=== PATIENT | female | born 1970 | race Caucasian/White ===

== ENCOUNTER 2017-08-06 13:12 | Emergency (ER) | payer BC ==
[2017-08-06 13:25] VITALS: BP 103/61
[2017-08-06] MEDS ORDERED: Albuterol/Ipratropium NEB.SOL* Albuterol 2.5 MG/Ipratropium 0.5 MG 3 ML INH ONE (13:41)
--- NOTE | 2017-08-06 13:43 | UC ---
Respiratory Complaint HPI - HPI Summary HPI Summary: 1 week of increase and worsening cough, had a lobectomy for lung concern but needed no chemo or radiation--has not used her inhaler, has had no fever or sputum - History of Current Complaint Chief Complaint: UCRespiratory Stated Complaint: SOB/COUGH Time Seen by Provider: 08/06/17 13:34 Hx Obtained From: Patient ?: No Onset/Duration: Sudden Onset, Lasting Weeks - 1, Still Present Timing: Constant Severity Initially: Mild Severity Currently: Mild - bothe sides of lower chest with cough Character: Cough: Nonproductive Associated Signs And Symptoms: Positive: Dyspnea, Pleuritic Chest Pain - Allergies/Home Medications Allergies/Adverse Reactions: Allergies Allergy/AdvReac Type Severity Reaction Status Date / Time Amoxicillin Allergy Intermediate Hives Verified 08/06/17 13:25 Codeine Allergy Intermediate Altered Verified 08/06/17 13:25 Mental Status Erythromycin Allergy Intermediate Hives Verified 08/06/17 13:25 Penicillins Allergy Intermediate Hives Verified 08/06/17 13:25 Sulfa Drugs Allergy Intermediate Hives Verified 08/06/17 13:25 PMH/Surg Hx/FS Hx/Imm Hx Previously Healthy: No GI/ History: Gastroesophageal Reflux Cancer History: Lung Cancer - Surgical History Surgical History: Yes Surgery Procedure, Year, and Place: Cardiac ablation for arrhythmia 2007, cholecystectomy 2008, complete hysterectomy 2005, endometriosis laparoscopies, knee surgery x3 for torn cartilage 1995, lymph node removal and biopsy right chest 01/2015, lt upper lobectomy - Family History Known Family History: Positive: None - Social History Occupation: Employed Full-time Lives: With Family Alcohol Use: Rare Substance Use Type: None Smoking Status (MU): Never Smoked Tobacco Have You Smoked in the Last Year: No Review of Systems Constitutional: Negative Skin: Negative Eyes: Negative ENT: Negative Respiratory: Shortness Of Breath, Cough Cardiovascular: Negative Gastrointestinal: Negative Genitourinary: Negative Motor: Negative Neurovascular: Negative Musculoskeletal: Negative Neurological: Negative Psychological: Negative Is Patient Immunocompromised?: No All Other Systems Reviewed And Are Negative: Yes Physical Exam Triage Information Reviewed: Yes Appearance: Well-Appearing, No Pain Distress, Well-Nourished Vital Signs: Initial Vital Signs Temp 97.8 F 08/06/17 13:21 Pulse 67 08/06/17 13:21 Resp 18 08/06/17 13:21 BP 103/61 08/06/17 13:21 Pulse Ox 100 08/06/17 13:21 Vital Signs Reviewed: Yes Eye Exam: Normal Eyes: Positive: Conjunctiva Clear ENT Exam: Normal ENT: Positive: Normal ENT inspection, Hearing grossly normal, TMs normal. Negative: Nasal congestion, Nasal drainage, Trismus, Muffled/hoarse voice Dental Exam: Normal Neck exam: Normal Neck: Positive: Supple, Nontender, No Lymphadenopathy Respiratory Exam: Normal Respiratory: Positive: Chest non-tender, Lungs clear, Normal breath sounds, No respiratory distress, No accessory muscle use Cardiovascular Exam: Normal Cardiovascular: Positive: RRR, No Murmur, Pulses Normal, Brisk Capillary Refill Musculoskeletal Exam: Normal Musculoskeletal: Positive: Strength Intact, ROM Intact, No Edema Neurological Exam: Normal Neurological: Positive: Alert, Muscle Tone Normal Psychological Exam: Normal Skin Exam: Normal UC Diagnostic Evaluation - Laboratory O2 Sat by Pulse Oximetry: 100 - Radiology Xray Interpretation: No Acute Changes Radiology Interpretation Completed By: Radiologist Re-Evaluation - Re-Evaluation First Eval Change: Improved - in aeration after neb---feels better, cough and chest tightness Respiratory Course/Dx - Course Course Of Treatment: prednisone, use flovent daily and albuterol prn for cough chest tightness follow with pcp prn - Differential Dx/Diagnosis Differential Diagnosis/HQI/PQRI: Asthma, Bronchitis Provider Diagnoses: acute exacebation of bronchospasm Discharge - Discharge Plan Condition: Stable Disposition: HOME Prescriptions: Albuterol HFA INHALER* [Ventolin HFA Inhaler*] 2 puff INH Q6H PRN #1 mdi PRN Reason: Cough predniSONE TAB* [Deltasone TAB*] 10 mg PO DAILY #26 tab Patient Education Materials: Bronchospasm (ED), Acute Cough (ED) Referrals: Robby Johnson MD [Primary Care Provider] - 2 Weeks
--- NOTE | 2017-08-06 14:05 | RAD ---
HISTORY: Shortness of breath, cough COMPARISONS: December 10, 2015 VIEWS: 4: Frontal dual-energy and lateral views of the chest. FINDINGS: CARDIOMEDIASTINAL SILHOUETTE: The cardiomediastinal silhouette is normal. ARLETTE: The arlette are normal. PLEURA: The costophrenic angles are sharp. No pleural abnormalities are noted. LUNG PARENCHYMA: There is hyperinflation with flattening of the diaphragm and expansion of the retrosternal airspace. ABDOMEN: The upper abdomen is clear. There is no subphrenic gas. BONES AND SOFT TISSUES: No bone or soft tissue abnormalities are noted. OTHER: None. IMPRESSION: HYPERINFLATION WHICH CAN BE SEEN WITH COPD OR REACTIVE AIRWAY DISEASE. NO ACTIVE CARDIOPULMONARY DISEASE.
== END 2017-08-06 14:35 | disposition home or self-care (01) ==
LOC: UCEAST 13:12
DX: J98.01 Acute bronchospasm (principal); K21.9 Gastro-esophageal reflux disease without esophagitis; Z88.1 Allergy status to other antibiotic agents; Z88.0 Allergy status to penicillin; Z88.2 Allergy status to sulfonamides; Z85.118 Personal history of other malignant neoplasm of bronchus and lung
CPT/HCPCS: 71020; 99212; A9270-GY; G0463

== ENCOUNTER 2017-10-14 23:31 | Emergency (ER) | payer BC ==
[2017-10-14 23:36] VITALS: BP 111/68
[2017-10-14] MEDS ORDERED: Ibuprofen TAB* 600 MG PO ONE (23:44)
--- NOTE | 2017-10-14 23:58 | ED ---
Lower Extremity - HPI Summary HPI Summary: 46F presents with right foot injury today. She dropped a guitar on the top of her foot. She has ROM with pain of her foot. She denies any previous injury to the area. She denies any numbness or tingling. She has ecchmyosis to top of her foot. She is still able to ambulate with pain. She denies any other injury. She did not take anything for pain. pain is 8/10. - History of Current Complaint Chief Complaint: EDExtremityLower Stated Complaint: RIGHT FOOT INJURY Time Seen by Provider: 10/14/17 23:40 Pain Intensity: 7 - Allergies/Home Medications Allergies/Adverse Reactions: Allergies Allergy/AdvReac Type Severity Reaction Status Date / Time Amoxicillin Allergy Intermediate Hives Verified 08/06/17 13:25 Codeine Allergy Intermediate Altered Verified 08/06/17 13:25 Mental Status Erythromycin Allergy Intermediate Hives Verified 08/06/17 13:25 Penicillins Allergy Intermediate Hives Verified 08/06/17 13:25 Sulfa Drugs Allergy Intermediate Hives Verified 08/06/17 13:25 PMH/Surg Hx/FS Hx/Imm Hx Endocrine/Hematology History: Denies: Hx Diabetes, Hx Thyroid Disease Cardiovascular History: Reports: Other Cardiovascular Problems/Disorders - MITROVALVE ABLASION, Denies: Hx Hypertension Respiratory History: Reports: Hx Asthma, Other Respiratory Problems/Disorders - PARTIAL Denies: Hx Chronic Obstructive Pulmonary Disease (COPD) GI History: Denies: Hx Ulcer - Surgical History Surgery Procedure, Year, and Place: Cardiac ablation for arrhythmia 2007, cholecystectomy 2008, complete hysterectomy 2005, endometriosis laparoscopies, knee surgery x3 for torn cartilage 1995, lymph node removal and biopsy right chest 01/2015, lt upper lobectomy - Immunization History Date of Tetanus Vaccine: unk Date of Influenza Vaccine: none Infectious Disease History: No Infectious Disease History: Denies: Hx Clostridium Difficile, Hx Hepatitis, Hx Human Immunodeficiency Virus (HIV), Hx of Known/Suspected MRSA, Hx Shingles, Hx Tuberculosis, Hx Known/ Suspected VRE, Hx Known/Suspected VRSA, History Other Infectious Disease, Traveled Outside the [place] in Last 30 Days - Family History Known Family History: Positive: None - Social History Alcohol Use: Rare Substance Use Type: Reports: None Hx Tobacco Use: No Smoking Status (MU): Never Smoked Tobacco Have You Smoked in the Last Year: No Review of Systems Negative: Fever Negative: Chest Pain Negative: Shortness Of Breath Positive: Myalgia - right foot injury All Other Systems Reviewed And Are Negative: Yes Physical Exam Triage Information Reviewed: Yes Vital Signs On Initial Exam: Initial Vitals Temp Pulse Resp BP Pulse Ox 98.4 F 77 16 111/68 100 10/14/17 23:33 10/14/17 23:33 10/14/17 23:33 10/14/17 23:33 10/14/17 23:33 Vital Signs Reviewed: Yes Appearance: Positive: Well-Appearing Skin: Positive: Warm, Dry, Other - ecchymosis to top of right foot Head/Face: Positive: Normal Head/Face Inspection Eyes: Positive: Normal, Conjunctiva Clear Respiratory/Lung Sounds: Positive: Clear to Auscultation, Breath Sounds Present Cardiovascular: Positive: Normal, RRR Musculoskeletal: Positive: Limited @ - right foot pain, Other - good pulses, capillary refill<2 secs, sensation grossly intact. Neurological: Positive: Normal Psychiatric: Positive: Normal - Tj Coma Scale Coma Scale Total: 15 Diagnostics - Vital Signs Vital Signs Temp Pulse Resp BP Pulse Ox 10/14/17 23:33 98.4 F 77 16 111/68 100 - Laboratory Lab Statement: Any lab studies that have been ordered have been reviewed, and results considered in the medical decision making process. - Radiology ankle Xray Interpretation: No Acute Changes Radiology Interpretation Completed By: ED Physician Lower Extremity Course/Dx - Course Course Of Treatment: 46F presents with right foot injury today. She dropped a guitar on the top of her foot. She has ROM with pain of her foot. She denies any previous injury to the area. She denies any numbness or tingling. She has ecchmyosis to top of her foot. She is still able to ambulate with pain. She denies any other injury. She did not take anything for pain. pain is 8/10. on exam has ecchmyosis to top of right foot, sensation grossly intact. good pulses , I read xray as normal with dr presley informed that will call if read differently. will give post op shoe and treat with RICE. patient declined crutches. patient understand and agrees with plan. - Diagnoses Differential Diagnosis/HQI/PQRI: Positive: Contusion, Fracture (Closed), Sprain Provider Diagnoses: Right foot injury Discharge - Discharge Plan Condition: Good Disposition: HOME Patient Education Materials: Foot Contusion (ED) Referrals: Robby Johnson MD [Primary Care Provider] - Additional Instructions: Take Tylenol or ibuprofen every 6 hours as needed for pain Use shoe for support Apply ice, rest, elevate Follow up with primary care physician within 5 days Return to ED if develop any new or worsening symptoms
--- NOTE | 2017-10-15 07:48 | RAD ---
INDICATION: Right foot injury COMPARISON: None TECHNIQUE: AP, lateral, and oblique views were obtained. FINDINGS: There is no acute fracture. The joint spaces are maintained The soft tissue swelling over the dorsum of the midfoot. IMPRESSION: SOFT TISSUE SWELLING. NO ACUTE FRACTURE.
== END 2017-10-15 00:30 | disposition home or self-care (01) ==
LOC: ED 23:31
DX: S99.921A Unspecified injury of right foot, initial encounter (principal); W22.8XXA Striking against or struck by other objects, initial encounter; Y93.9 Activity, unspecified; Y92.9 Unspecified place or not applicable
CPT/HCPCS: 99282; A9270-GY

== ENCOUNTER 2019-01-05 11:47 | Observation (INO) | payer BC ==
--- NOTE | 2019-01-05 16:03 | ED ---
Abdominal Pain/Female - HPI Summary HPI Summary: Pt. is a 48 y.o female who presents to the ER for RLQ abdominal pain. Pt. states she was in [facility] until 12/26. Pt. states she then developed abd. pain and vomiting. She was seen at 01/01/19 and started on cipro and antiemetic. Pt. states vomiting improved but abd. pain has worsening and is now localized to her RLQ. Pt. denies fever, chills, CP, SOB, diarrhea, vomiting. Remote hx of lung ca, total hysterectomy. Symptoms are moderate in severity. No current modifying factors. - History of Current Complaint Chief Complaint: Bri Stated Complaint: "i THINK i HAVE APPENDACITIS" PER PT Time Seen by Provider: 01/05/19 16:01 Hx Obtained From: Patient Pain Intensity: 7 Allergies/Adverse Reactions: Allergies Allergy/AdvReac Type Severity Reaction Status Date / Time amoxicillin Allergy Hives Verified 01/01/19 15:02 codeine Allergy Altered Verified 01/01/19 15:02 Mental Status erythromycin base Allergy Hives Verified 01/01/19 15:02 Penicillins Allergy Hives Verified 01/01/19 15:02 Sulfa (Sulfonamide Allergy Hives Verified 01/01/19 15:02 Antibiotics) PMH/Surg Hx/FS Hx/Imm Hx Previously Healthy: Yes Endocrine/Hematology History: Denies: Hx Diabetes, Hx Thyroid Disease Cardiovascular History: Reports: Other Cardiovascular Problems/Disorders - MITROVALVE ABLASION, Denies: Hx Hypertension Respiratory History: Reports: Hx Asthma, Other Respiratory Problems/Disorders - PARTIAL Denies: Hx Chronic Obstructive Pulmonary Disease (COPD) GI History: Denies: Hx Ulcer - Surgical History Surgery Procedure, Year, and Place: Cardiac ablation for arrhythmia 2007, cholecystectomy 2008, complete hysterectomy 2005, endometriosis laparoscopies, knee surgery x3 for torn cartilage 1995, lymph node removal and biopsy right chest 01/2015, lt upper lobectomy - Immunization History Date of Tetanus Vaccine: unk Date of Influenza Vaccine: none Infectious Disease History: No Infectious Disease History: Reports: Traveled Outside the [place] in Last 30 Days - [facility], last tuesday returned Denies: Hx Clostridium Difficile, Hx Hepatitis, Hx Human Immunodeficiency Virus (HIV), Hx of Known/Suspected MRSA, Hx Shingles, Hx Tuberculosis, Hx Known/ Suspected VRE, Hx Known/Suspected VRSA, History Other Infectious Disease - Family History Known Family History: Positive: None - Social History Occupation: Employed Full-time Lives: With Family Alcohol Use: None Substance Use Type: Reports: None Hx Tobacco Use: No Smoking Status (MU): Never Smoked Tobacco Have You Smoked in the Last Year: No Review of Systems Constitutional: Negative Negative: Fever, Chills ENT: Negative Cardiovascular: Negative Respiratory: Negative Positive: Abdominal Pain, Nausea. Negative: Vomiting, Diarrhea Genitourinary: Negative Negative: dysuria Musculoskeletal: Negative Skin: Negative Neurological: Negative All Other Systems Reviewed And Are Negative: Yes Physical Exam Triage Information Reviewed: Yes Vital Signs On Initial Exam: Initial Vitals Temp Pulse Resp BP Pulse Ox 97.6 F 76 16 112/75 100 01/05/19 12:03 01/05/19 12:03 01/05/19 12:03 01/05/19 12:03 01/05/19 12:03 Vital Signs Reviewed: Yes Appearance: Positive: Well-Appearing - Pt. lying in bed in NAD. Pleasant. Skin: Positive: Warm, Dry Head/Face: Positive: Normal Head/Face Inspection Eyes: Positive: Normal, EOMI Neck: Positive: Supple Respiratory/Lung Sounds: Positive: Clear to Auscultation, Breath Sounds Present Cardiovascular: Positive: Normal, RRR Abdomen Description: Positive: Other: - Abd. is soft with marked tenderness to RLQ with guarding. No CVA tenderness bilaterally. Musculoskeletal: Positive: Normal, Strength/ROM Intact Neurological: Positive: Normal, CN Intact II-III Psychiatric: Positive: Affect/Mood Appropriate Diagnostics - Vital Signs Vital Signs Temp Pulse Resp BP Pulse Ox 01/05/19 13:50 98.6 F 73 16 105/59 100 01/05/19 12:03 97.6 F 76 16 112/75 100 - Laboratory Result Diagrams: 01/05/19 16:05 01/05/19 16:05 Lab Statement: Any lab studies that have been ordered have been reviewed, and results considered in the medical decision making process. Abdominal Pain Fem Course/Dx - Course Course Of Treatment: Pt. presenting for marked RLQ tenderness. She is afebrile with stable VS. Pt. did have a noncontrast CT done at last week that was unremarkable. Given worsening pain and marked tenderness on exam, will obtain CT scan with contrast to evaluate for appendicitis. Pt declines pain medication. Pt. will be signed out to Jacquie Pizano PA-C for CT results and appropriate disposition. - Diagnoses Differential Diagnosis: Positive: Appendicitis, Bowel Obstruction, Constipation , Diverticulitis, Renal Colic, Urinary Tract Infection Provider Diagnoses: Abdominal pain Discharge - Sign-Out/Discharge Documenting (check all that apply): Sign-Out Patient Signing out patient TO: Lay Pizano - Discharge Plan Referrals: Robby Johnson MD [Primary Care Provider] -
[2019-01-05] MEDS ORDERED: NS 0.9% 1000 ML** 1,000 ML IV ONE (16:10)
[2019-01-05 16:13] LABS: ABS Basophils 0 10^3/ul (0-0.2); ABS Eosinophils 0.1 10^3/ul (0-0.6); ABS Lymphocytes 1.3 10^3/ul (1.0-4.8); ABS Monocytes 0.5 10^3/ul (0-0.8); ABS Neutrophils 4.8 10^3/ul (1.5-7.7); ABS Nucleated RBC 0 10^3/ul; Eosinophil % 2.2 %; Hematocrit 42 % (35-47); Hemoglobin 13.9 g/dl (12.0-16.0); Lymphocyte % 18.5 %; Mean Corpuscular HGB Conc 33 g/dl (31-36); Mean Corpuscular Hemoglobin 29 pg (27-31); Mean Corpuscular Volume 88 fL (80-97); Mean Platelet Volume 8.3 fL (7.4-10.4); Nucleated Red Blood Cells % 0; Platelet Count 209 10^3/ul (150-450); Red Blood Count 4.73 10^6/ul (4.00-5.40); Red Cell Distribution Width 13 % (10.5-15); White Blood Count 6.8 10^3/ul (3.5-10.8)
[2019-01-05 16:31] LABS: Albumin 4.5 g/dL (3.2-5.2); Albumin/Globulin Ratio 1.4 (1-3); BUN/Creatinine Ratio 11.3 (8-20); C Reactive Protein 8.26 mg/L (<8.01); Calcium 9.3 mg/dL (8.6-10.3); EGFR African American 74.2 (>60); EGFR Non-African American 61.3 (>60); Globulin 3.3 g/dL (2-4); Potassium 3.6 mmol/L (3.5-5.0); Total Bilirubin 0.6 mg/dL (0.2-1.0); Total Protein 7.8 g/dL (6.4-8.9)
[2019-01-05 16:37] LABS: HCG Pregnancy 1.59 mIU/mL
[2019-01-05 17:15] LABS: Urine Appearance Clear; Urine Bilirubin Negative (Negative); Urine Blood Negative (Negative); Urine Color Yellow; Urine Glucose Negative (Negative); Urine Ketones Negative (Negative); Urine Nitrite Negative (Negative); Urine Protein Negative (Negative); Urine Specific Gravity 1.014 (1.010-1.030); Urine Urobilinogen Negative (Negative)
[2019-01-05] MEDS ORDERED: Iohexol 300* (CONTRAST) 10 ML SDV IV ONE (17:33)
--- NOTE | 2019-01-05 18:32 | ED ---
Progress - Progress Note Progress Note: patient signed out by derian pending CT. CT shows: IMPRESSION: Acute uncomplicated appendicitis. Re-Evaluation - Re-Evaluation First Eval Re-Evaluation Time: 18:32 Comment: pain still in RLQ Course/Dx - Course Course Of Treatment: Pt. presenting for marked RLQ tenderness. She is afebrile with stable VS. Pt. did have a noncontrast CT done at last week that was unremarkable. Given worsening pain and marked tenderness on exam, will obtain CT scan with contrast to evaluate for appendicitis. Pt declines pain medication. CT shows appendicitis. discussed case with dr mcclain who will take patient to OR. - Diagnoses Provider Diagnoses: Appendicitis Discharge - Sign-Out/Discharge Documenting (check all that apply): Patient Departure, Receiving Sign-Out Receiving patient FROM: Derian De Jesus - Discharge Plan Condition: Stable Disposition: ADMITTED TO [facility] Referrals: Robby Johnson MD [Primary Care Provider] - - Billing Disposition and Condition Condition: STABLE Disposition: Admitted to [facility]
[2019-01-05] MEDS ORDERED: Buffered Lidocaine 1% SYRIN* 1 ML/SYRINGE INTRADERM ONE (20:41)
[2019-01-05] MEDS ORDERED: Acetaminophen TAB* 325 MG PO PRN (20:42)
[2019-01-05] MEDS ORDERED: PROCHLORPERAZINE INJ 5 MG/ML 2 ML VIAL IV PRN (20:42)
[2019-01-05] MEDS ORDERED: DiMENhydriNATE IV* 50 MG/ML VIAL IV PUSH PRN (20:42)
[2019-01-05] MEDS ORDERED: diPHENhydraMINE IV* 50 MG/ML 1 ml VIAL (BENADRYL) IV PRN (20:42)
[2019-01-05] MEDS ORDERED: Naloxone* 0.4 MG/ML 1 ML VIAL IV PRN (20:42)
[2019-01-05] MEDS ORDERED: Clindamycin 900 MG/D5W BAG(*) 900 MG/50 ML BAG IVPB ONE (20:54)
[2019-01-05] MEDS ORDERED: Famotidine IV* 10 MG/ML 2 ML (20 mg) ONE (20:56)
[2019-01-05] MEDS ORDERED: Lactated Ringers 1000 ML Bag* 1,000 ML IV SCH ×2 (21:00→23:00)
[2019-01-05] MEDS ORDERED: fentaNYL* 50 MCG/ML 2 ML VIAL (100 MCG VIAL) ONE ×2 (21:03→22:35)
[2019-01-05] MEDS ORDERED: Succinylcholine* 20 MG/ML 10 ML VIAL ONE (21:03)
[2019-01-05] MEDS ORDERED: Midazolam* 1 MG/ML 2 ML VIAL (2 MG) ONE (21:03)
[2019-01-05] MEDS ORDERED: Cisatracurium* 2 MG/ML MDV 5 ML ONE (21:03)
[2019-01-05] MEDS ORDERED: Bupivacaine 0.25% W/EPI* 10 ML SDV ONE (21:08)
[2019-01-05] MEDS ORDERED: Propofol* 10 MG/ML 20 ML BTL ONE (21:29)
[2019-01-05] MEDS ORDERED: Dexamethasone IV* 4 MG/ML 1 ML (4 MG) ONE (21:29)
[2019-01-05] MEDS ORDERED: Ondansetron INJ* 2 MG/ML VIAL ONE (21:29)
[2019-01-05] MEDS ORDERED: Ketorolac INJ* 30 MG/ML 1 ML VIAL ONE (21:29)
[2019-01-05] MEDS ORDERED: Lidocaine 2% PF * 5 ML VIAL ONE (21:32)
[2019-01-05] MEDS ORDERED: Ondansetron INJ* 2 MG/ML VIAL IV PRN (22:19)
--- NOTE | 2019-01-05 22:22 | BRIEFOPN ---
Brief Operative Note - Surgery Procedures: Procedures Pre-OP Diagnoses: acute appendicitis Post-op Diagnosis: same Procedure: Laparoscopic appendectomy Surgeon: Chao Asst: none Anethesia: YAOA EBL: minimal IVF: crystalloid Specimen: appendix Drains: none
--- NOTE | 2019-01-05 22:33 | HP ---
CC: [facility]; Dr. Robby Johnson HISTORY AND PHYSICAL: DATE OF ADMISSION: 01/05/19 PRIMARY CARE PHYSICIAN: Dr. Robby Johnson. HISTORY OF PRESENT ILLNESS: I was contacted by the emergency room with regard to Ms. Rutledge who presented with abdominal pain and was diagnosed in the emergency room with lab and CT with likely anant endicitis. On evaluation, the patient states that she has been suffering with 4 days of abdominal pain that is n ow mostly in the right side accompanying with nausea, but no vomiting. She had presented to [facility] on Tuesday with similar complaints and underwent a similar workup that was negative, but sent home on Cipro and Flagyl for a supposed infection after a recent travel to [place]. The patien t showed no improvement, stayed away from food and ultimately re-presented to the emergency room toda y with similar complaints. The patient denies any fevers or chills. No constipation or diarrhea. No previous similar symptoms. She does have anorexia. PAST MEDICAL HISTORY: Endometriosis, lung CA, mitral valve issues, cardiac arrhythmia. PAST SURGICAL HISTORY: Cholecystectomy, hysterectomy done vaginally, 2 laparoscopies for endometrios is, right upper lobectomy for lung CA with lymph node removal, knee surgery x3. MEDICATIONS: Medication list is reviewed and includes: 1. Cipro and Flagyl as described above. 2. Zofran. 3. She is on a hormone patch. ALLERGIES: List as reviewed and includes PENICILLIN, AMOXICILLIN, CODEINE, SULFA and ERYTHROMYCIN BA SE. FAMILY HISTORY: Noncontributory. No history of ulcerative colitis or Crohn's disease. SOCIAL HISTORY: She is a nonsmoker, lives with his family, works at [employer]. REVIEW OF SYSTEMS: No fevers or chills. No significant weight loss or weight gain. No bleeding or clotting disorders. Pulmonary issues secondary to a lung surgery, but denies shortness of breath, roblero s fair exercise tolerance. No irritable bowel symptoms. Endometriosis as described. No vaginal dis charge. She does not have menses secondary to hysterectomy, stating that she had both ovaries remove d as well. No endocrine disorders, no psychiatric illnesses. No dysuria. PHYSICAL EXAMINATION GENERAL: Alert and oriented x3, in no apparent distress. VITAL SIGNS: She is afebrile. Vital signs are stable. HEENT: Irregularity to the right frontal region, but with good skin tone. No evidence of dehydratio n with moist mucous membranes. NECK: No lymphadenopathy. LUNGS: Clear. ABDOMEN: Soft, nondistended, tender at McBurney's point, without rebound or guarding, well healed gregory rgical incision without hernia. No CVA tenderness. RECTAL: Exam not performed. EXTREMITIES: Within normal limits with no pitting edema. DIAGNOSTIC STUDIES/LAB DATA: Labs were mostly unremarkable. Normal white blood cell count, mildly elevated CRP. Urinalysis within normal limits too. The patient underwent a CT scan with oral contrast and IV contrast. These images were reviewed and c ontrast was seen in the cecum, but there is a dilated noncontrast filled structure in the retroperito neum. It does show thickening in the wall with some air in it. This was compared to a CT scan from 4 days ago without similar findings in that retroperitoneum. IMPRESSION: Persistent abdominal pain throughout the week on antibiotics and a CAT scan suggestive o f a change in the appendix on CT with persistent right lower quadrant pain at McBurney's, but certain ly not toxic, who I think may be suffering with an appendicitis that is now only becoming more clinic al, who I believe would benefit from appendectomy. I outlined the details of the procedure for lapar oscopic appendectomy. I went over the possible alternatives of watchful waiting and antibiotics. Th e patient wished to proceed. She understands the complications as described, which included, but not limited to bleeding infection, abscess formation, injury to adjacent organ, need for additional proc edures, need for open procedures and hernia formation. The patient will be given a dose of clindamyc in. She has emptied her bladder. I will take her promptly to the operating room for laparoscopic ap pendectomy. She will be admitted overnight due to the time. [id number]/[facility] #: [id number]
[2019-01-05] MEDS ORDERED: PROCHLORPERAZINE INJ 5 MG/ML 2 ML VIAL ONE (22:37)
[2019-01-05] MEDS: fentaNYL* 50 MCG/ML 2 ML VIAL (100 MCG VIAL) IV PRN ×4 (22:51→23:56)
--- NOTE | 2019-01-05 23:43 | OP ---
CC: [facility]; Dr. Robby Johnson OPERATIVE REPORT: DATE OF OPERATION: 01/05/19 DATE OF : 70 SURGEON: Dr. Kenroy Guidry. BEAD CUTTER: None. ANESTHESIOLOGIST: Dr. Crawford. ANESTHESIA: General anesthesia. PRE-OP DIAGNOSIS: Acute appendicitis. POST-OP DIAGNOSIS: Acute appendicitis. OPERATIVE PROCEDURE: Laparoscopic appendectomy. ESTIMATED BLOOD LOSS: Minimal. FLUIDS: Minimal crystalloid fluid given. SPECIMENS: Appendix, nonperforated. DESCRIPTION OF PROCEDURE: Ms. Rutledge was brought to the operating room, placed on the operating room table in the supine position. Preoperative antibiotics were given. Sequential devices were solitario pamela on bilateral lower extremities. General anesthesia was induced. The patient's abdomen was prepp ed and draped in the standard surgical fashion and a time-out was performed. Folds of the umbilicus were elevated anteriorly and a Veress needle inserted into the abdominal cavit y, which was then allowed insufflate to a pressure of 15 mmHg. The patient tolerated the insufflation well. A umbilical incision was made and a 12 mm trocar was inserted with Optiview. Laparoscope was inserted through this after we removed the obturator and I reviewed the abdomen. Verses needle was removed. There appeared to be no injury from our access. Two additional 5 mm ports were placed in t he suprapubic area in the left lower quadrant. Table was repositioned, the cecum was identified and the appendix was identified, the tip of which wa s adhered to the distal small bowel. This was sharply lysed off of this. The appendix appeared mild ly indurated at the tip without gangrenous changes. We sharply dissected around the mesoappendix and took the artery with a LigaSure device. We then were able to isolate the base of the appendix and s taple it with a 45 mm mccord BRIANNA stapling device. The appendix was placed in an endoscopic retrieval ba g. Review of the abdomen showed no free fluid. Next, we ran the small bowel retrograde from the terminal ileum proximally approximately 3 feet and d id not find any lesions. The patient was placed back in neutral position. The appendix was removed t hrough the umbilical port site with the Endobag and the port was closed with a 0 Vicryl stitch with a n Endo Close device in a simple fashion. Abdomen was allowed to collapse. Trocar was removed under direct vision and all 3 skin incisions were reapproximated with 4-0 Monocryl subcuticular sutures fol lowed by Steri-Strips and sterile dressing. The patient tolerated the procedure well and was transfe rred to PACU. [id number]/[facility] #: [id number]
[2019-01-05] MEDS ORDERED: oxyCODONE/Acetamin 5/325 MG* TAB ONE (23:54)
[2019-01-05] MEDS: oxyCODONE/Acetamin 5/325 MG* TAB PO PRN (23:54)
[2019-01-06] MEDS: oxyCODONE/Acetamin 5/325 MG* TAB PO PRN (08:02)
[2019-01-06 08:34] VITALS: BP 110/56
== END 2019-01-06 10:15 | disposition home or self-care (01) ==
LOC: ED 11:47 → INTOOBSV 22:19 → SSU 22:19
PROVIDERS: ADMIT Surgery; ATTEND Surgery
DX: K37 Unspecified appendicitis (principal); R10.31 Right lower quadrant pain; Z88.0 Allergy status to penicillin; Z88.2 Allergy status to sulfonamides; Z85.118 Personal history of other malignant neoplasm of bronchus and lung; Z87.42 Personal history of other diseases of the female genital tract; Z86.79 Personal history of other diseases of the circulatory system
CPT/HCPCS: 36415; 74177; 80053; 81003; 83690; 84702; 85025; 86140; 88304; 96374; 96375; 99283; A9270-GY; G0378; J0330; J0780; J1100; J1885; J2250; J2405; J2704; J3010; Q9967

== ENCOUNTER 2019-01-24 16:55 | Emergency (ER) | payer BC ==
--- OUTSIDE RECORDS SUMMARY | 2019-01-24 17:00 | XMS REPORT | Continuity of Care Document ---
:1970 External Reference #:[id number] Author Name AnabelleYessica Care Team Providers Name Role Phone Robby Johnson MD Primary Care Physician Unavailable Payers Date Identification Numbers Payment Provider Subscriber Policy Number: [id number] [employer] Dragan Rutledge Group Number: [id number] [address] [address] PayID: [id number] ALLEN Patel [address] Advance Directives Description No Information Available Problems Description No Information Family History Description No Information Available Social History Type Date Description Comments Sex Unknown Marital Status Lives With Spouse Occupation Currently Working ETOH Use Denies alcohol use Tobacco Use Start: Unknown Patient has never smoked Recreational Drug Use Denies Drug Use Smoking Status Reviewed: 01/11/19 Patient has never smoked Exercise Type/Frequency Exercises sporadically Allergies, Adverse Reactions, Alerts Date Description Reaction Status Severity Comments 01/08/2019 Penicillin Active 01/08/2019 Amoxicillin Active 01/08/2019 Codeine Active 01/08/2019 Sulfa Antibiotics Active 01/08/2019 Erythromycin Active Medications Medication Date Status Form Strength Qnty SIG Indications Ordering Provider Climara Active Patches 0.05mg/24H Unknown Weekly R No Active 01/11/2019 Hx Unknown Medications - 01/11/2019 Cipro Hx Tablets 500mg 1 by Unknown - Unknown mouth twice a day Flagyl Hx Tablets 500mg one Unknown - Unknown twice a day Zofran Hx Tablets 4mg 1 every Unknown - Unknown 12 hours as needed Immunizations Description No Information Available Vital Signs Date Vital Result Comment 01/11/2019 1:22pm Height 71 inches 5'11" Weight 195.00 lb Heart Rate 72 /min BP Systolic 117 mmHg BP Diastolic 70 mmHg Respiratory Rate 16 /min Body Temperature 97.7 F BMI (Body Mass Index) 27.2 kg/m2 Results Test Date Facility Test Result H/L Range Note Laboratory test 01/05/2019 Surgical SEE RESULT [address] [address] [phone] 1 SEE RESULT BELOW Name: NARCISASUSANDELORIS LOPEZ : [address]: Kenroy Guirdy MD Acct: [id number] Unit: [id number] AGE: 48 Location: [facility] 333-01 Re01/05/19 Dis: 01/06/19 SEX: F Status: DIS Zackary SPEC: [id number] COSTA: 01/05/19- SUBM DR: Kenroy Guidry MD REQ: [id number] RECD: 01/06/197 STATUS: SOUT _ ORDERED: LEVEL 3 FINAL DIAGNOSIS Vermiform appendix, appendectomy: -- Early acute appendicitis. PRE-OPERATIVE DIAGNOSIS Appendicitis GROSS DESCRIPTION The specimen is received in formalin labeled, Appendix, and consists of a 4.8 cm appendix with abundant attached mesoappendix. The external diameter ranges from 0.6 cm in the distal tip to 1.0 cm in the mid to proximal specimen. The serosa is smooth to shaggy mccord-white with a few fibromembranous adhesions and scant focal cauterization. The lumen measures up to 0.3 cm. The mucosa is glistening mccord-white and the wall thickness averages 0.1 cm. Rouge Sifter sections, one cassette. Signed by and Reported on: Anthony Calhoun MD 10/18 5104 END OF REPORT DEPARTMENT OF PATHOLOGY, [address] [place] [address] Anthony Calhoun M.D. Director [facility] # [id number] Procedures Description No Information Available Encounters Description No Information Available Plan of Treatment No Information Available
[2019-01-24 17:36] VITALS: BP 109/57
--- NOTE | 2019-01-24 18:58 | UC ---
Throat Pain/Nasal Morro HPI - HPI Summary HPI Summary: 48-year-old female presents with 5 day history of sore throat and left ear pain. Associated with some mild nasal congestion with postnasal drip. Denies fever, chills, ear drainage, tinnitus, hearing loss, vertigo, dysphagia, cough, chest pain, shortness of breath. - History of Current Complaint Chief Complaint: UCRespiratory Stated Complaint: SORE THROAT Time Seen by Provider: 01/24/19 18:37 Hx Obtained From: Patient Pain Intensity: 4 - Allergies/Home Medications Allergies/Adverse Reactions: Allergies Allergy/AdvReac Type Severity Reaction Status Date / Time amoxicillin Allergy Hives Verified 01/24/19 17:31 codeine Allergy Altered Verified 01/24/19 17:31 Mental Status erythromycin base Allergy Hives Verified 01/24/19 17:31 Penicillins Allergy Hives Verified 01/24/19 17:31 Sulfa (Sulfonamide Allergy Hives Verified 01/24/19 17:31 Antibiotics) PMH/Surg Hx/FS Hx/Imm Hx Previously Healthy: Yes - Denies significant PMH - Surgical History Surgical History: Yes Surgery Procedure, Year, and Place: Appy 01/05/2019. Cardiac ablation for arrhythmia 2007, cholecystectomy 2008, complete hysterectomy 2005, endometriosis laparoscopies, knee surgery x3 for torn cartilage 1995, lymph node removal and biopsy right chest 01/2015, lt upper lobectomy - Family History Known Family History: Positive: Non-Contributory - Social History Occupation: Employed Full-time Lives: With Family Alcohol Use: None Substance Use Type: None Smoking Status (MU): Never Smoked Tobacco Have You Smoked in the Last Year: No - Immunization History Most Recent Influenza Vaccination: none Most Recent Pneumonia Vaccination: none Review of Systems All Other Systems Reviewed And Are Negative: Yes Constitutional: Negative: Fever, Chills Skin: Negative: Rash Eyes: Negative: Drainage, Eye Redness ENT: Positive: Sore Throat, Ear Ache, Sinus Congestion, Other - Postnasal drip. Negative: Nasal Discharge, Sinus Pain/Tenderness Respiratory: Negative: Shortness Of Breath, Cough Cardiovascular: Negative: Palpitations, Chest Pain Gastrointestinal: Negative: Abdominal Pain, Vomiting, Diarrhea, Nausea Genitourinary: Positive: Negative Musculoskeletal: Positive: Negative Neurological: Positive: Negative Is Patient Immunocompromised?: No Physical Exam - Summary Physical Exam Summary: GENERAL APPEARANCE: Well developed, well nourished, alert and cooperative, and appears to be in no acute distress. EYES: Conjunctiva clear. No drainage. Vision is grossly intact. EARS: External auditory canals clear, right TM opaque with good cone of light, left TM dull without erythema, hearing grossly intact. NOSE: Mild nasal congestion. No nasal discharge. THROAT: Mild pharyngeal erythema. No tonsilar inflammation, swelling, exudate, or lesions. Uvula midline. Oral cavity normal. Teeth and gingiva in good general condition. NECK: Neck supple, non-tender without lymphadenopathy. CARDIAC: Normal S1 and S2. No S3, S4 or murmurs. Rhythm is regular. There is no peripheral edema, cyanosis or pallor. Extremities are warm and well perfused. Capillary refill is less than 2 seconds. Peripheral pulses intact. LUNGS: Clear to auscultation without rales, rhonchi, wheezing or diminished breath sounds. ABDOMEN: Positive bowel sounds. Soft, nondistended, nontender. No guarding or rebound. No masses or hepatosplenomegally. MUSKULOSKELETAL: ROM intact to all extremities. No joint erythema or tenderness. Normal muscular development. Normal gait. SKIN: Skin normal color, texture and turgor with no lesions or eruptions. Triage Information Reviewed: Yes Vital Signs: Initial Vital Signs Temp 98.6 F 01/24/19 17:32 Pulse 75 01/24/19 17:32 Resp 18 01/24/19 17:32 BP 109/57 01/24/19 17:32 Pulse Ox 100 01/24/19 17:32 Vital Signs Reviewed: Yes Throat Pain/Nasal Course/Dx - Course Course Of Treatment: 48-year-old female presents with 5 day history of sore throat and left ear pain. Associated with some mild nasal congestion with postnasal drip. Denies fever, chills, ear drainage, tinnitus, hearing loss, vertigo, dysphagia, cough, chest pain, shortness of breath. Afebrile. Vital signs stable. Exam remarkable for mild nasal congestion, pharyngeal erythema with postnasal drip, no tonsillar swelling or exudate, no cervical lymphadenopathy, and left TM dull without erythema. Recommending symptomatic treatment for viral URI with left serous otitis including fluticasone nasal spray, lexb-ybw-tdswnmt decongestant, jpxp-qoq-sxpjozk analgesics, and saltwater gargles. She is to follow-up with her primary care provider in 5 days if symptoms do not improve. Anticipatory guidance and warning symptoms reviewed with the patient. Verbalizes understanding and agrees with plan of care. - Differential Dx/Diagnosis Differential Diagnosis/HQI/PQRI: Influenza, Pharyngitis, Sinusitis, Tonsillitis , URI Provider Diagnosis: Post-nasal drip, Serous otitis media Discharge - Sign-Out/Discharge Documenting (check all that apply): Patient Departure All imaging exams completed and their final reports reviewed: No Studies - Discharge Plan Condition: Stable Disposition: HOME Patient Education Materials: Pharyngitis (ED), Serous Otitis Media (ED), Postnasal Drip (DC) Referrals: Robby Johnson MD [Primary Care Provider] - 5 Days (If no improvement in symptoms.) Additional Instructions: Your rapid strep test in the clinic today was negative. Your symptoms are likely from a viral infection. Viral infections do not respond to antibiotics and are limited to the treatment of symptoms. Viral infections typically run their course in 7-10 days. Drink plenty of fluids. Use your fluticasone (Flonase) nasal spray 2 sprays each nostril once daily. You can try using an over the counter decongestant such as Sudafed according to directions for any congestion. Use salt water gargles several times a day. Take over the counter acetaminophen (Tylenol) or ibuprofen (Advil, Motrin) according to directions as needed for pain or fever. You may also use Chloraseptic spray or Cepacol lonzenges according to directions which contain a numbing medication and can provide some temporary relief from your sore throat. Return here or follow up with your primary care provider in 5 days if symptoms persist. Seek immediate medical attention in the emergency room if you have fever greater than 100.5 F despite taking acetaminophen or ibuprofen, are unable to swallow or develop drooling, are unable to open your mouth fully, are unable to eat or drink, have pain that is not relieved with over the counter pain medication, have any difficulty breathing, or any worsening of symptoms. - Billing Disposition and Condition Condition: STABLE Disposition: Home
== END 2019-01-24 19:20 | disposition home or self-care (01) ==
LOC: UCEAST 16:55
DX: R09.82 Postnasal drip (principal); H65.92 Unspecified nonsuppurative otitis media, left ear; Z86.79 Personal history of other diseases of the circulatory system
CPT/HCPCS: 87651; 99211; G0463

== ENCOUNTER 2019-02-14 10:46 | Emergency (ER) | payer BC ==
[2019-02-14 11:00] VITALS: BP 101/64
--- NOTE | 2019-02-14 11:38 | UC ---
Throat Pain/Nasal Morro HPI - HPI Summary HPI Summary: 48-year-old female with history of asthma and lung cancer status post left upper lobectomy presents with one-week history of progressively worsening nasal congestion, chest congestion, and productive cough. Associated with feeling "hot and cold". States sputum was initially clear but his become a thick yellow color over the past 2 days. She has been using her albuterol inhaler twice a day however yesterday she ran out and does not have any refills. Denies fever, ear pain, sore throat, chest pain, abdominal pain, nausea, vomiting, or diarrhea. - History of Current Complaint Chief Complaint: UCGeneralIllness Stated Complaint: COUGH CHEST CONGESTION Time Seen by Provider: 02/14/19 11:23 Hx Obtained From: Patient Hx Last Menstrual Period: hyster Pain Intensity: 2 - Allergies/Home Medications Allergies/Adverse Reactions: Allergies Allergy/AdvReac Type Severity Reaction Status Date / Time amoxicillin Allergy Hives Verified 02/14/19 11:00 codeine Allergy Altered Verified 02/14/19 11:00 Mental Status erythromycin base Allergy Hives Verified 02/14/19 11:00 Penicillins Allergy Hives Verified 02/14/19 11:00 Sulfa (Sulfonamide Allergy Hives Verified 02/14/19 11:00 Antibiotics) PMH/Surg Hx/FS Hx/Imm Hx Respiratory History: Asthma GI/ History: Gastroesophageal Reflux Cancer History: Lung Cancer - Surgical History Surgical History: Yes Surgery Procedure, Year, and Place: Appy 01/05/2019. Cardiac ablation for arrhythmia 2007, cholecystectomy 2008, complete hysterectomy 2005, endometriosis laparoscopies, knee surgery x3 for torn cartilage 1995, lymph node removal and biopsy right chest 01/2015, lt upper lobectomy - Family History Known Family History: Positive: Non-Contributory - Social History Occupation: Employed Full-time Lives: With Family Alcohol Use: None Substance Use Type: None Smoking Status (MU): Never Smoked Tobacco Have You Smoked in the Last Year: No - Immunization History Most Recent Influenza Vaccination: none Most Recent Pneumonia Vaccination: none Review of Systems All Other Systems Reviewed And Are Negative: Yes Constitutional: Positive: Chills, Fatigue. Negative: Fever Skin: Negative: Rash Eyes: Negative: Drainage, Eye Redness ENT: Positive: Nasal Discharge, Sinus Congestion. Negative: Sore Throat, Ear Ache, Sinus Pain/Tenderness Respiratory: Positive: Shortness Of Breath, Cough, Other - Wheezing Cardiovascular: Negative: Palpitations, Chest Pain Gastrointestinal: Negative: Abdominal Pain, Vomiting, Diarrhea, Nausea Genitourinary: Positive: Negative Musculoskeletal: Positive: Negative Neurological: Positive: Negative Is Patient Immunocompromised?: No Physical Exam - Summary Physical Exam Summary: GENERAL APPEARANCE: Well developed, well nourished, alert and cooperative, and appears to be in no acute distress. EYES: Conjunctiva clear. No drainage. EARS: External auditory canals and tympanic membranes clear, hearing grossly intact. NOSE: Moderate nasal congestion. No nasal discharge noted. THROAT: Pharyngeal cobblestoning. No tonsilar inflammation, swelling, exudate, or lesions. Uvula midline. Oral cavity normal. Teeth and gingiva in good general condition. NECK: Neck supple, non-tender without lymphadenopathy. CARDIAC: Normal S1 and S2. No S3, S4 or murmurs. Rhythm is regular. There is no peripheral edema, cyanosis or pallor. Extremities are warm and well perfused. Capillary refill is less than 2 seconds. Peripheral pulses intact. LUNGS: Clear to auscultation without rales, rhonchi, wheezing or diminished breath sounds. Loose, non-productive cough. ABDOMEN: Positive bowel sounds. Soft, nondistended, nontender. No guarding or rebound. No masses or hepatosplenomegally. MUSKULOSKELETAL: ROM intact to all extremities. No joint erythema or tenderness. Normal muscular development. Normal gait. SKIN: Skin normal color, texture and turgor with no lesions or eruptions. Triage Information Reviewed: Yes Vital Signs: Initial Vital Signs Temp 98 F 02/14/19 10:56 Pulse 80 02/14/19 10:56 Resp 18 02/14/19 10:56 BP 101/64 02/14/19 10:56 Pulse Ox 100 02/14/19 10:56 Vital Signs Reviewed: Yes Throat Pain/Nasal Course/Dx - Course Course Of Treatment: 48-year-old female with history of asthma and lung cancer status post left upper lobectomy presents with one-week history of progressively worsening nasal congestion, chest congestion, and productive cough. Associated with feeling "hot and cold". States sputum was initially clear but his become a thick yellow color over the past 2 days. She has been using her albuterol inhaler twice a day however yesterday she ran out and does not have any refills. Denies fever, ear pain, sore throat, chest pain, abdominal pain, nausea, vomiting, or diarrhea. Afebrile. Vital signs stable. Exam remarkable for moderate nasal congestion, pharyngeal cobblestoning, clear bilateral breath sounds, and a loose nonproductive cough. Considering the worsening of her symptoms and her underlying asthma I will treat her for an upper respiratory infection with doxycycline 100 mg twice a day 7 days. I have also provided her with a refill for her albuterol inhaler which she is to use 2 puffs every 4- 6 hours as needed for shortness of breath or wheezing, and Tessalon Perles 1 capsule every 8 hours as needed for cough. She is to follow-up with her primary care provider in 5 days if symptoms do not improve. Anticipatory guidance and warning symptoms are reviewed with the patient. Verbalizes understanding and agrees with plan of care. - Differential Dx/Diagnosis Differential Diagnosis/HQI/PQRI: Influenza, Pharyngitis, Sinusitis, Tonsillitis , URI Provider Diagnosis: URI with cough and congestion Discharge - Sign-Out/Discharge Documenting (check all that apply): Patient Departure All imaging exams completed and their final reports reviewed: No Studies - Discharge Plan Condition: Stable Disposition: HOME Prescriptions: Albuterol HFA INHALER* [Ventolin HFA Inhaler*] 2 puff INH Q4H PRN #1 mdi PRN Reason: Sob/Wheezing Benzonatate CAP* [Tessalon 100 MG CAP*] 100 mg PO TID PRN #30 cap PRN Reason: Cough Doxycycline Hyclate 100 mg PO BID #14 tablet Patient Education Materials: Upper Respiratory Infection (ED) Referrals: Robby Johnson MD [Primary Care Provider] - 5 Days Additional Instructions: Your history and exam are consistent with an upper respiratory infection. Considering the progressive worsening of your symptoms and your underlying asthma I will treat you with an antibiotic for the infection. Take doxycycline 100 mg 1 tab twice a day for 7 days. Use the albuterol inhaler 2 puffs every 4-6 hours as needed for shortness of breath or wheezing. Use Tessalon Perles 1 cap every 8 hours as needed for cough. Drink plenty of fluids to avoid dehydration especially if you are running any fever. Use a saline rinse kit such as Neti Pot or NeilMed at least twice a day to help thin secretions and promote drainage of the sinuses. Use fluticasone (Flonase) nasal spray 2 sprays each nostril once daily. Take over the counter acetaminophen (Tylenol) or ibuprofen (Advil, Motrin) according to directions as needed for pain or fever. Follow up with your primary care provider in 5 days if symptoms persist. Seek immediate medical attention in the emergency room if you have fever greater than 100.5 F despite taking acetaminophen or ibuprofen, have chest pain , difficulty breathing, are unable to swallow, or have any worsening of symptoms. - Billing Disposition and Condition Condition: STABLE Disposition: Home
== END 2019-02-14 11:55 | disposition home or self-care (01) ==
LOC: UCEAST 10:46
DX: J06.9 Acute upper respiratory infection, unspecified (principal); J45.909 Unspecified asthma, uncomplicated; Z85.118 Personal history of other malignant neoplasm of bronchus and lung; Z90.2 Acquired absence of lung [part of]; Z88.0 Allergy status to penicillin; Z88.5 Allergy status to narcotic agent; Z88.1 Allergy status to other antibiotic agents; Z88.2 Allergy status to sulfonamides
CPT/HCPCS: 99212; G0463

== ENCOUNTER 2019-03-23 11:11 | Emergency (ER) | payer BC ==
[2019-03-23] MEDS ORDERED: EPINEPHRINE 1 MG/ML 1 ML VIAL IM ONE (11:13)
[2019-03-23] MEDS ORDERED: diPHENhydraMINE IV* 50 MG/ML 1 ml VIAL (BENADRYL) IV ONE (11:15)
[2019-03-23] MEDS ORDERED: methylPREDNISolone 125 MG* 2 ML VIAL IV ONE (11:15)
[2019-03-23] MEDS ORDERED: Famotidine IV* 10 MG/ML 2 ML (20 mg) IV SLOW PU ONE (11:16)
--- NOTE | 2019-03-23 11:20 | UC ---
Allergic Reaction HPI - HPI Summary HPI Summary: PATIENT ARRIVES COMPLAINING OF SENSATION OF THROAT CLOSING OVER, DIFFICULTY BREATHING, SHORTNESS OF BREATH. STATES SHE HAS AN ALLERGY TO LILACS AND SOMEONE BROUGHT LILACS INTO WORK THIS MORNING. USED HER ALBUTEROL INHALER BUT DID NOT TAKE ANY OTHER MEDICATIONS. SHE ARRIVES TACHYPNEIC BUT WITH 100% OXYGEN SATURATION. - History of Current Complaint Stated Complaint: ALLERGIC REACTION Time Seen by Provider: 03/23/19 11:13 Hx Obtained From: Patient Hx Last Menstrual Period: hyster Onset/Duration: Sudden Onset, Lasting Minutes, Still Present Severity Initially: Moderate Severity Currently: Moderate Pain Intensity: 8 Pain Scale Used: 0-10 Numeric Aggravating Factor(s): Nothing Alleviating Factor(s): Nothing Associated Signs And Symptoms: Positive: Chest Pain, Difficulty Breathing, Throat Tightening. Negative: Rash - Allergies/Home Medications Allergies/Adverse Reactions: Allergies Allergy/AdvReac Type Severity Reaction Status Date / Time amoxicillin Allergy Hives Verified 03/23/19 11:24 codeine Allergy Altered Verified 03/23/19 11:24 Mental Status erythromycin base Allergy Hives Verified 03/23/19 11:24 Penicillins Allergy Hives Verified 03/23/19 11:24 Sulfa (Sulfonamide Allergy Hives Verified 03/23/19 11:24 Antibiotics) environmental Allergy Congestion Uncoded 03/23/19 11:24 lilacs Allergy Anaphylatic Uncoded 03/23/19 11:24 Shock Home Medications: Home Medications Cetirizine HCl [Zyrtec] 10 mg PO QPM 03/23/19 [History Confirmed 03/23/19] Ibuprofen 600 mg PO ONCE PRN 03/23/19 [History Confirmed 03/23/19] PMH/Surg Hx/FS Hx/Imm Hx Respiratory History: Asthma GI/ History: Gastroesophageal Reflux - Surgical History Surgical History: Yes Surgery Procedure, Year, and Place: Appy 01/05/2019. Cardiac ablation for arrhythmia 2007, cholecystectomy 2008, complete hysterectomy 2005, endometriosis laparoscopies, knee surgery x3 for torn cartilage 1995, lymph node removal and biopsy right chest 01/2015, lt upper lobectomy - Family History Known Family History: Positive: Non-Contributory - Social History Alcohol Use: None Substance Use Type: None Smoking Status (MU): Never Smoked Tobacco Have You Smoked in the Last Year: No - Immunization History Most Recent Influenza Vaccination: none Most Recent Pneumonia Vaccination: none Review of Systems All Other Systems Reviewed And Are Negative: Yes Constitutional: Positive: Negative Skin: Positive: Negative ENT: Positive: Negative Respiratory: Positive: Shortness Of Breath Cardiovascular: Positive: Chest Pain Gastrointestinal: Positive: Negative Physical Exam Triage Information Reviewed: Yes Appearance: No Pain Distress, Well-Nourished Vital Signs Reviewed: Yes Eyes: Positive: Conjunctiva Clear ENT: Positive: Hearing grossly normal, Pharynx normal - NO EDEMA, Uvula midline Neck: Positive: Supple, Nontender, No Lymphadenopathy Respiratory: Positive: Lungs clear, Normal breath sounds, Respiratory distress - INCREASED WOB, TACHYPNEIC. Negative: Stridor, Wheezing Cardiovascular Exam: Normal Abdomen Description: Positive: Soft Musculoskeletal: Positive: No Edema Neurological: Positive: Alert Psychological: Positive: Age Appropriate Behavior Skin: Negative: Rashes Re-Evaluation - Re-Evaluation First Eval Re-Evaluation Time: 11:45 - FEELS BETTER, BREATHING EASIER AFTER 0.3MG EPI, 125MG SOLUMEDROL, 50MG DIPHENHYDRAMINE, 40MG PEPCID. Change: Improved Second Eval Re-Evaluation Time: 12:45 - CONTINUED IMPROVEMENT. RESP RATE NORMALIZED. FEELS READY FOR D/C Change: Improved Allergic Reaction Course/Dx - Course Course Of Treatment: PATIENT WITH SIGNIFICANT IMPROVEMENT IN HER SYMPTOMS AFTER 0.3 MG EPINEPHRINE, ONE 25 MG SOLU-MEDROL, 50 MG PREDNISONE, 40 MG PEPCID AND ABOUT 700 ML NORMAL SALINE. WILL CONTINUE PREDNISONE FOR 4 MORE DAYS. HAVE ALSO ADVISED SHE CONTINUE HER OTC ANTIHISTAMINE. HAVE PRESCRIBED AN EPIPEN FOR HER TO HAVE ON HAND. SHE WILL GO TO THE ER WITHOUT FAIL WITH ANY WORSENING SYMPTOMS. - Differential Dx/Diagnosis Provider Diagnosis: Anaphylaxis Discharge - Sign-Out/Discharge Documenting (check all that apply): Patient Departure All imaging exams completed and their final reports reviewed: No Studies - Discharge Plan Condition: Stable Disposition: HOME Prescriptions: EPINEPHrine [Epipen] 0.3 mg IJ ONCE PRN #1 auto.injct PRN Reason: Allergy Symptoms predniSONE TAB* [Deltasone TAB*] 50 mg PO DAILY #4 tab Patient Education Materials: Anaphylaxis (ED), General Allergic Reaction (ED) Forms: *Work Release Referrals: Robby Johnson MD [Primary Care Provider] - If Needed Additional Instructions: YOU HAD IMPROVEMENT IN YOUR SYMPTOMS AFTER AN INJECTION OF EPINEPHRINE, ONE 25 MG SOLU-MEDROL, 50 MG DIPHENHYDRAMINE, 40 MG PEPCID AND SOME IV FLUIDS. A PRESCRIPTION FOR AN EPIPEN HAS BEEN SENT TO YOUR PHARMACY. WILL ALSO CONTINUE PREDNISONE FOR THE NEXT 4 DAYS. TAKE OTC ANTIHISTAMINE DAILY (CLARITIN (LORATADINE), ZYRTEC (CETIRIZINE) OR RADHA (FEXOFENADINE) IN THE MORNING, 50MG BENADRYL AT NIGHT) GO TO THE ED WITHOUT FAIL IF YOU DEVELOP ANY RECURRENT RESPIRATORY DISTRESS, TONGUE/LIP SWELLING, FEVER, NAUSEA/VOMITING OR ANY OTHER CONCERNING SYMPTOMS. - Billing Disposition and Condition Condition: STABLE Disposition: Home
[2019-03-23] MEDS ORDERED: NS 0.9% 1000 ML** 1,000 ML IV SCH (11:30)
[2019-03-23 12:53] VITALS: BP 119/51
== END 2019-03-23 12:54 | disposition home or self-care (01) ==
LOC: UCEAST 11:11
DX: T78.2XXA Anaphylactic shock, unspecified, initial encounter (principal); J45.909 Unspecified asthma, uncomplicated; Z88.0 Allergy status to penicillin; Z88.5 Allergy status to narcotic agent; Z88.1 Allergy status to other antibiotic agents; Z88.2 Allergy status to sulfonamides; Z91.09 Other allergy status, other than to drugs and biological substances; X58.XXXA Exposure to other specified factors, initial encounter; Y92.9 Unspecified place or not applicable
CPT/HCPCS: 96360; 96372; 96374; 96375; 99212; G0463; J1200; J2930

== ENCOUNTER 2019-11-07 07:29 | Day surgery (SDC) | payer BC, OTHER ==
[~2019-11-07 07:29] MED LIST: Acetaminophen TAB* 325 MG PO PRN; Buffered Lidocaine 1% SYRIN* 1 ML/SYRINGE INTRADERM ONE
[2019-11-07] MEDS ORDERED: Lidocaine 2% w/ EPI 1:200,000* 20 ML SDV VIAL ONE (09:40)
[2019-11-07] MEDS ORDERED: acetaZOLAMIDE TAB* 250 MG ONE (09:40)
[2019-11-07] MEDS ORDERED: Ketorolac 0.5% OPHTH (NF) 0.5 % 5 ML BTL ONE (09:40)
[2019-11-07] MEDS ORDERED: Neomycin/Polymy/Dex OPTH.SUSP* MAXITROL 0.1% 5 ML ONE (09:40)
[2019-11-07] MEDS ORDERED: Phenylephrine OPHTH SOL 2.5%* 2 ML ONE (09:40)
[2019-11-07] MEDS ORDERED: Povidone Iodine 5% OPTH* 30 ML BTL ONE (09:40)
[2019-11-07] MEDS ORDERED: Cyclopentolate 1% OPTH.SOL* 2 ML BTL ONE (09:40)
[2019-11-07] MEDS ORDERED: Lidocaine 1% MPF ** 5 ML VIAL ONE (09:40)
[2019-11-07] MEDS ORDERED: Proparacaine 0.5% OPHTH.SOL* 15 ML BTL ONE (09:41)
[2019-11-07] MEDS ORDERED: Midazolam* 1 MG/ML 2 ML VIAL (2 MG) ONE ×2 (09:49→10:07)
[2019-11-07] MEDS ORDERED: fentaNYL* 50 MCG/ML 2 ML VIAL (100 MCG VIAL) ONE (09:49)
[2019-11-07 10:46] VITALS: BP 103/68
--- NOTE | 2019-11-07 12:03 | OP ---
DATE OF OPERATION: 11/07/2019. DATE OF : 1970. SURGEON: Patrick Heart M.D. PREOPERATIVE DIAGNOSIS: Cataract right eye. POSTOPERATIVE DIAGNOSIS: Cataract right eye. OPERATIVE PROCEDURE: Extracapsular cataract extraction with intraocular lens implant right eye. PROCEDURE: The patient was brought to the operating room after being given 1/2% Alcaine with epineph rine drops in the preoperative area. The eye was prepped and draped in the usual sterile fashion. S terile drape and eyelid speculum were placed. Again, topical 1/2% Alcaine with epinephrine was given . A paracentesis incision was made at the 9 o'clock position with the No.75 blade. Clear cornea inc ision 2.2 x 2.2-mm was created at the 12 o'clock position starting at the anterior limbus using the 2 .2-mm keratome. The anterior chamber was irrigated with 0.4 mL of 1% non-preservative intracameral l idocaine and filled with DisCoVisc. A capsulorrhexis was completed using the cystotome and the Utrat a forceps. Hydrodissection was performed with balanced salt solution. The lens nucleus was removed w ith the Phacoemulsification handpiece without incident. Cortex was removed with the irrigation-aspir ation handpiece. The capsular bag was re-inflated using DisCoVisc and an [id number] implant was insert ed with the shooter, oriented to the 119 degree meridian. Horizontal reference sheridan were made with the patient in a seated position in the preoperative area. All measurements confirmed with ORA. The irrigation-aspiration handpiece was used to remove all residual DisCoVisc. The eye was refilled with balanced salt solution and the wound checked and found to be watertight. Topical Maxitrol drops wer e given. [id number]/[facility] #: [id number]
== END 2019-11-07 10:45 | disposition home or self-care (01) ==
LOC: OREAST 07:29
PROVIDERS: ATTEND Specialist
DX: H25.811 Combined forms of age-related cataract, right eye (principal); H44.23 Degenerative myopia, bilateral; Z88.0 Allergy status to penicillin; Z88.1 Allergy status to other antibiotic agents; J30.2 Other seasonal allergic rhinitis; D86.9 Sarcoidosis, unspecified; Z85.118 Personal history of other malignant neoplasm of bronchus and lung; I34.1 Nonrheumatic mitral (valve) prolapse
CPT/HCPCS: A9270-GY; J2250; J3010; V2787

== ENCOUNTER 2019-11-14 08:05 | Day surgery (SDC) | payer BC, OTHER ==
[2019-11-14] MEDS ORDERED: Midazolam* 1 MG/ML 5 ML VIAL (5 MG) ONE (09:58)
[2019-11-14] MEDS ORDERED: fentaNYL* 50 MCG/ML 2 ML VIAL (100 MCG VIAL) ONE (09:58)
[2019-11-14 11:00] VITALS: BP 98/67
--- NOTE | 2019-11-14 11:35 | OP ---
DATE OF OPERATION: 11/14/2019. DATE OF : 1970. SURGEON: Patrick Heart M.D. PREOPERATIVE DIAGNOSIS: Cataract left eye. POSTOPERATIVE DIAGNOSIS: Cataract left eye. OPERATIVE PROCEDURE: Extracapsular cataract extraction with intraocular lens implant left eye. PROCEDURE: The patient was brought to the operating room after being given 1/2% Alcaine with epineph rine drops in the preoperative area. The eye was prepped and draped in the usual sterile fashion. S terile drape and eyelid speculum were placed. Again, topical 1/2% Alcaine with epinephrine was given . A paracentesis incision was made at the 3 o'clock position with the No.75 blade. Clear cornea inc ision 2.2 x 2.2-mm was created at the 6 o'clock position starting at the anterior limbus using the 2. 2-mm keratome. The anterior chamber was irrigated with 0.4 mL of 1% non-preservative intracameral li docaine and filled with DisCoVisc. A capsulorrhexis was completed using the cystotome and the Utrata forceps. Hydrodissection was performed with balanced salt solution. The lens nucleus was removed wi th the Phacoemulsification handpiece without incident. Cortex was removed with the irrigation-aspira tion handpiece. The capsular bag was re-inflated using DisCoVisc and an [id number] implant was inserte d with the shooter and oriented to the 41 degree meridian. Horizontal reference sheridan were made with the patient in the seated position. All measurements were confirmed using ORA. The irrigation- asp iration handpiece was used to remove all residual DisCoVisc. The eye was refilled with balanced salt solution and the wound checked and found to be watertight. Topical Maxitrol drops were given. [id number]/[facility] #: [id number]
[2019-11-14] MEDS ORDERED: Cyclopentolate 1% OPTH.SOL* 2 ML BTL ONE (14:58)
[2019-11-14] MEDS ORDERED: Ketorolac 0.5% OPHTH (NF) 0.5 % 5 ML BTL ONE (14:58)
[2019-11-14] MEDS ORDERED: Lidocaine 1% MPF ** 5 ML VIAL ONE (14:58)
[2019-11-14] MEDS ORDERED: Phenylephrine OPHTH SOL 2.5%* 2 ML ONE (14:58)
[2019-11-14] MEDS ORDERED: Lidocaine 2% w/ EPI 1:200,000* 20 ML SDV VIAL ONE (14:58)
[2019-11-14] MEDS ORDERED: Neomycin/Polymy/Dex OPTH.SUSP* MAXITROL 0.1% 5 ML ONE (14:58)
[2019-11-14] MEDS ORDERED: Povidone Iodine 5% OPTH* 30 ML BTL ONE (14:58)
[2019-11-14] MEDS ORDERED: Proparacaine 0.5% OPHTH.SOL* 15 ML BTL ONE (14:58)
== END 2019-11-14 11:10 | disposition home or self-care (01) ==
LOC: OREAST 08:05
PROVIDERS: ATTEND Specialist
DX: H25.812 Combined forms of age-related cataract, left eye (principal); H44.23 Degenerative myopia, bilateral; D86.9 Sarcoidosis, unspecified; Z85.118 Personal history of other malignant neoplasm of bronchus and lung; I34.1 Nonrheumatic mitral (valve) prolapse; J30.2 Other seasonal allergic rhinitis; K21.9 Gastro-esophageal reflux disease without esophagitis; Z88.0 Allergy status to penicillin; Z88.1 Allergy status to other antibiotic agents
CPT/HCPCS: A9270-GY; J2250; J3010; V2787

== ENCOUNTER 2021-03-14 15:57 | Observation (INO) ==
[2021-03-14] MEDS ORDERED: NS 0.9% 1000 ml BAG 1,000 ML IV ONE (17:31)
[2021-03-14] MEDS ORDERED: Iodixanol (CONTRAST) 320 MG/ML 100 ML SDV IV ONE (17:57)
[2021-03-14 18:07] LABS: ABS Basophils 0.1 10^3/ul (0-0.2); ABS Eosinophils 0.2 10^3/ul (0-0.6); ABS Lymphocytes 1.7 10^3/ul (1.0-4.8); ABS Monocytes 0.7 10^3/ul (0-0.8); ABS Neutrophils 6.3 10^3/ul (1.5-7.7); Eosinophil % 2.2 %; Hematocrit 40 % (35-47); Hemoglobin 13.9 g/dL (12.0-16.0); Lymphocyte % 18.8 %; Mean Corpuscular HGB Conc 35 g/dL (31-36); Mean Corpuscular Hemoglobin 30 pg (27-31); Mean Corpuscular Volume 86 fL (80-97); Mean Platelet Volume 8.5 fL (7.4-10.4); Platelet Count 222 10^3/uL (150-450); Red Blood Count 4.67 10^6 /uL (3.70-4.87); Red Cell Distribution Width 13 % (10-15); White Blood Count 8.9 10^3/uL (3.5-10.8)
[2021-03-14 18:16] LABS: Activated Partial Thrombo Time 30.2 seconds (26.0-38.0); INR 0.99 (0.82-1.09)
[2021-03-14 18:37] LABS: ALT 94 U/L (7-52); AST 53 U/L (13-39); Albumin 4.3 g/dL (3.2-5.2); Albumin/Globulin Ratio 1.3 (1-3); Alkaline Phosphatase 158 U/L (34-104); Anion Gap 5 mmol/L (2-11); Blood Urea Nitrogen 13 mg/dL (6-24); CO2 Carbon Dioxide 29 mmol/L (22-32); Calcium 9.6 mg/dL (8.6-10.3); Chloride 102 mmol/L (101-111); Cholesterol 194 mg/dL; EGFR African American 78.2 (>60); EGFR Non-African American 64.6 (>60); Globulin 3.2 g/dL (2-4); Glucose 143 mg/dL (70-100); HDL Cholesterol 61.6 mg/dL; LDL Cholesterol 83 mg/dL; Potassium 3.7 mmol/L (3.5-5.0); Sodium 136 mmol/L (135-145); Total Protein 7.5 g/dL (6.4-8.9); Triglycerides 245 mg/dL
[2021-03-14] MEDS ORDERED: Alteplase (100 mg Vial) 100 mg VIAL IV ONE ×2 (19:07)
[2021-03-14 23:44] LABS: TSH Ultra Thyroid Stim Horm 2.57 mcIU/mL (0.34-5.60)
[2021-03-14 23:55] LABS: Folate > 20.00 ng/mL (5.90-24.80)
[2021-03-14 23:56] LABS: Vitamin B12 363 pg/mL (180-914)
[2021-03-15 03:40] LABS: Urine Appearance Clear; Urine Bilirubin Negative (Negative); Urine Blood Negative (Negative); Urine Color Yellow; Urine Glucose Negative (Negative); Urine Ketones Negative (Negative); Urine Nitrite Negative (Negative); Urine Protein Negative (Negative); Urine Specific Gravity 1.045 (1.002-1.030); Urine Urobilinogen Negative (Negative)
[2021-03-15 03:52] LABS: Urine Bacteria Absent (Absent); Urine Red Blood Cell Absent (Absent); Urine White Blood Cell Trace(0-5/hpf) (Absent)
[2021-03-15 03:53] LABS: Urine Squamous Epithelial Cell Present (Absent)
[2021-03-15 05:12] LABS: ABS Eosinophils 0.2 10^3/ul (0-0.6); ABS Lymphocytes 1.6 10^3/ul (1.0-4.8); ABS Monocytes 0.6 10^3/ul (0-0.8); ABS Neutrophils 4.3 10^3/ul (1.5-7.7); Hematocrit 36 % (35-47); Lymphocyte % 23.7 %; Mean Corpuscular HGB Conc 34 g/dL (31-36); Mean Corpuscular Hemoglobin 29 pg (27-31); Mean Corpuscular Volume 86 fL (80-97); Mean Platelet Volume 8.3 fL (7.4-10.4); Platelet Count 181 10^3/uL (150-450); Red Cell Distribution Width 13 % (10-15); White Blood Count 6.8 10^3/uL (3.5-10.8)
[2021-03-15 05:34] LABS: Calcium 8.5 mg/dL (8.6-10.3); EGFR African American 93.2 (>60); Potassium 3.3 mmol/L (3.5-5.0)
[2021-03-15] MEDS ORDERED: Potassium Chlor 10 meq TAB PO ONE (06:08)
[2021-03-15 09:51] LABS: Magnesium 1.9 mg/dL (1.9-2.7)
[2021-03-15] MEDS: Enoxaparin 40 MG/0.4 ML SYR SUBCUT SCH ×2 (20:24)
[2021-03-16 10:34] LABS: CO2 Carbon Dioxide 19 mmol/L (22-32); Calcium 9.4 mg/dL (8.6-10.3); Chloride 104 mmol/L (101-111); Sodium 135 mmol/L (135-145)
[2021-03-16 10:40] LABS: Blood Urea Nitrogen 14 mg/dL (6-24); EGFR African American 80.2 (>60); EGFR Non-African American 66.3 (>60); Glucose 92 mg/dL (70-100)
[2021-03-16 10:49] LABS: Anion Gap 12 mmol/L (2-11)
[2021-03-16 15:53] VITALS: BP 101/53
== END 2021-03-16 16:58 | disposition home or self-care (01) ==
LOC: ED 15:57 → MEDTELE 15:57
PROVIDERS: ADMIT Hospitalist; ATTEND Hospitalist